=== PATIENT | female | born 1975 | race Caucasian/White ===

== ENCOUNTER 2022-12-31 07:07 | Day surgery (SDC) | payer BC ==
[2022-12-27 10:41] VITALS: BMI 25.8
[2022-12-31] MEDS ORDERED: Oxymetazoline HCl 0.05% ( 15 ML ) ONE (09:01)
[2022-12-31] MEDS ORDERED: CEFAZOLIN 1 GM VIAL ONE (12:54)
[2022-12-31] MEDS ORDERED: Fentanyl 100 MCG/2 ML VIAL ONE (14:14)
[2022-12-31] MEDS ORDERED: HYDROcodone/Acetaminophen 5/325 mg Tablet ONE (14:49)
== END 2022-12-31 15:33 | disposition home or self-care (01) ==
LOC: CSHSDC 07:07
PROVIDERS: ATTEND Otolaryngology Plastic Surgery within the Head & Neck
PROC: 09SM0ZZ Reposition Nasal Septum, Open Approach (ICD-10-PCS; principal; 2022-12-31)
PROC: 09BL0ZZ Excision of Nasal Turbinate, Open Approach (ICD-10-PCS; principal; 2022-12-31)
DX: J34.2 Deviated nasal septum (principal); J34.3 Hypertrophy of nasal turbinates; J34.89 Other specified disorders of nose and nasal sinuses
CPT/HCPCS: J0690